=== PATIENT | male | born 1965 | race Two or more races ===

== ENCOUNTER 2023-04-25 09:34 | Emergency (ER) | payer OTHER ==
[~2023-04-25] VITALS: Ht 180.3 cm; Wt 126.1 kg
[2023-04-25] MEDS ORDERED: LOSARTAN POTASS25 MG PO (09:52)
[2023-04-25] MEDS ORDERED: SYNTHROID50 MCG PO (09:52)
[2023-04-25] MEDS ORDERED: TRICOR48 MG PO (09:52)
[2023-04-25] MEDS ORDERED: NORVASC5 MG PO (09:52)
[2023-04-25] MEDS ORDERED: ELIQUIS5 MG PO (09:53)
[2023-04-25] MEDS ORDERED: TOPROL XL50 M1 PO (09:53)
[2023-04-25 13:34] LABS: HEMATOCRIT 42.7 % (39.0-48.0); HEMOGLOBIN 14.6 g/dL (13-16.00); MEAN CELL VOLUME 88.3 fL (80.0-100.00); MEAN CORPUSCULAR HEMOGLOBIN 30.2 pg (27.00-32.0); MEAN CORPUSCULAR HGB CONC 34.2 g/dl (32.0-36.0); PLATELET COUNT 200 K/uL (150-450); RED BLOOD COUNT 4.84 M/uL (4.00-6.00); RED CELL DISTRIBUTION WIDTH 13.8 % (11.5-14.5)
[2023-04-25 13:35] LABS: PH,URINE 5.5 (5.0-8.0); URINE APPEARANCE Cloudy; URINE BILIRRUBIN Small (NEGATIVE); URINE BLOOD Trace; URINE COLOR Dark Yellow; URINE GLUCOSE Negative (NEGATIVE); URINE LEUKOCYTE Small; URINE NITRATE Positive
[2023-04-25 13:39] LABS: URINE BACTERIA 1828.2 uL (0.0-1933); URINE EPITHELIAL CELLS 46.8 uL (0.0-38.8); URINE RBC 22.8 uL (0.0-20.8); URINE WBC 345.6 uL (0.0-23.2)
[2023-04-25 13:58] LABS: URINE PROTEIN 300 (NEGATIVE)
[2023-04-25 14:10] LABS: ALBUMIN 3.2 gm/dL (3.4-5.0); BILIRUBIN TOTAL 0.9 mg/dL (0.3-1.2); CALCIUM 8.9 mg/dL (8.5-10.1); CREATININE SERUM 1.23 mg/dL (0.70-1.30); GFR 60.44; GLOBULINA 4.7 G/DL (2.4-3.5); POTASSIUM 3.56 mEq/L (3.5-5.1); TOTAL PROTEIN 7.9 gm/dL (6.4-8.2)
[2023-04-25] MEDS ORDERED: CIPRO500 MG PO (17:11)
== END 2023-04-25 17:15 | disposition home or self-care (01) ==
LOC: ER 09:35
PROVIDERS: Emergency Medicine
DX: N39.0 Urinary tract infection, site not specified (principal); Z20.822 Contact with and (suspected) exposure to COVID-19